=== PATIENT | male | born 1970 | race Caucasian/White ===

== ENCOUNTER 2017-04-05 16:15 | Emergency (ER) | payer SELFPAY | END 2017-04-05 18:30 | disposition home or self-care (01) | LOC: ER 16:15 | DX: T63.441A Toxic effect of venom of bees, accidental (unintentional), initial encounter (principal); Z91.041 Radiographic dye allergy status; Z88.5 Allergy status to narcotic agent; Z91.030 Bee allergy status | CPT/HCPCS: 96374; 96375; 99283; J2930 ==